=== PATIENT | male | born 2000 | race Caucasian/White ===

== ENCOUNTER 2025-06-28 13:58 | Inpatient (IN) | payer OTHER ==
[~2025-06-28] VITALS: Ht 182.9 cm; Wt 128.8 kg
[2025-06-28 16:00] VITALS: BP 142/72; PULSE 95; RESP 18; TEMP 98.2; O2SAT 96
[2025-06-28] MEDS ORDERED: POLYETHYLENE GLYCOL 3350 17 GM PACKET PO PRN (16:30)
[2025-06-28] MEDS ORDERED: ONDANSETRON 4 MG TABLET PO PRN (16:30)
[2025-06-28] MEDS ORDERED: SIMETHICONE 80 MG CHEWABLE TABLET CHEW PRN (16:30)
[2025-06-28] MEDS: ACETAMINOPHEN 325 MG TABLET PO SCH (18:27)
[2025-06-28] MEDS: IBUPROFEN 600 MG TABLET PO SCH (18:27)
[2025-06-28 20:05] VITALS: BP 123/69; PULSE 96; RESP 18; TEMP 98.9; O2SAT 96
[2025-06-28] MEDS: GABAPENTIN 300 MG CAPSULE PO SCH (21:35)
[2025-06-28] MEDS: ETHYL ALCOHOL 62% ANTISEPTIC NASAL SANITIZER 0.6 ML AMPUL NASAL SCH (21:35)
[2025-06-28] MEDS: FLUTICASONE PROPIONATE 50 MCG/SPRAY 16 GM NASAL SPRAY NASAL SCH (21:35)
[2025-06-28] MEDS: ENOXAPARIN SODIUM 40 MG/0.4 ML PF SYRINGE SQ SCH (21:36)
[2025-06-29 03:09] VITALS: BP 130/80; PULSE 91; RESP 18; O2SAT 100
[2025-06-29] MEDS: OxyCODONE HCL 10 MG IR TABLET PO PRN (03:09)
[2025-06-29 08:00] VITALS: BP 119/64; PULSE 79; RESP 18; TEMP 96.6; O2SAT 98
[2025-06-29] MEDS: MULTIVITAMINS WITH MINERALS, THERAPEUTIC TABLET PO SCH (08:18)
[2025-06-29] MEDS: SILVER SULFADIAZINE 1% 25 GM CREAM TUBE TP SCH (08:18)
[2025-06-29 08:21] LABS: PLATELET COUNT (AUTO) 410 K/uL (150-450); RED BLOOD CELL COUNT(AUTO) 3.60 MIL/uL (4.50-5.90); RED CELL DISTRIBUTION WIDTH 13.4 % (11.5-14.5); WHITE BLOOD COUNT (AUTO) 10.9 K/uL (4.5-11.0)
[2025-06-29 08:47] LABS: ASPARTATE AMINOTRANSFERASE 74 U/L (15-37); CALCIUM, TOTAL 8.6 mg/dL (8.8-10.5); CREATININE 0.83 mg/dL (0.60-1.30); GLOMERULAR FILTR. RATE CALC > 60 mL/min (>60); GLUCOSE,RANDOM 104 mg/dL (70-110); SODIUM SERUM 136 mmol/L (136-145); TOTAL PROTEIN, SERUM 6.0 g/dL (6.4-8.2); UREA NITROGEN, BLOOD 17 mg/dL (7-18)
[2025-06-29] MEDS ORDERED: SODIUM CHLORIDE 0.9% IRRIG BTL 1,000 ML IRRIG ONE (16:08)
[2025-06-29] MEDS: OxyCODONE HCL 5 MG IR TABLET PO PRN (16:12)
[2025-06-29 20:26] VITALS: BP 119/66; PULSE 88; RESP 18; TEMP 98.4; O2SAT 97
[2025-06-29 21:12] VITALS: O2SAT 97
[2025-06-30 09:00] VITALS: BP 155/68; PULSE 77; RESP 19; TEMP 97.9; O2SAT 98
[2025-06-30 20:02] VITALS: BP 135/75; PULSE 98; RESP 18; TEMP 98.4; O2SAT 99
[2025-06-30 22:42] VITALS: O2SAT 99
[2025-07-01 03:00] VITALS: BP 126/71; PULSE 88; RESP 18; TEMP 98.8; O2SAT 98
[2025-07-01 08:05] VITALS: BP 125/71; PULSE 74; RESP 20; TEMP 98.8; O2SAT 97
[2025-07-01 11:49] LABS: PLATELET COUNT (AUTO) 515 K/uL (150-450); RED BLOOD CELL COUNT(AUTO) 3.70 MIL/uL (4.50-5.90); RED CELL DISTRIBUTION WIDTH 13.8 % (11.5-14.5); WHITE BLOOD COUNT (AUTO) 13.8 K/uL (4.5-11.0)
[2025-07-01] MEDS: CEPHALEXIN MONOHYDRATE 500 MG CAPSULE PO SCH (12:37)
[2025-07-01 19:56] VITALS: BP 130/66; PULSE 82; RESP 18; TEMP 100; O2SAT 98
[2025-07-01 20:00] VITALS: O2SAT 98
[2025-07-01 21:52] VITALS: TEMP 98.6
[2025-07-02 02:10] VITALS: BP 126/74; PULSE 89; RESP 20; TEMP 98.6; O2SAT 96
[2025-07-02 06:11] LABS: PLATELET COUNT (AUTO) 496 K/uL (150-450); RED BLOOD CELL COUNT(AUTO) 3.27 MIL/uL (4.50-5.90); RED CELL DISTRIBUTION WIDTH 13.6 % (11.5-14.5); WHITE BLOOD COUNT (AUTO) 11.1 K/uL (4.5-11.0)
[2025-07-02 06:37] LABS: ASPARTATE AMINOTRANSFERASE 37 U/L (15-37); C-REACTIVE PROTEIN QUANT 7.43 mg/dL (0.00-0.30); CALCIUM, TOTAL 8.4 mg/dL (8.8-10.5); CREATININE 0.76 mg/dL (0.60-1.30); GLOMERULAR FILTR. RATE CALC > 60 mL/min (>60); GLUCOSE,RANDOM 98 mg/dL (70-110); SODIUM SERUM 140 mmol/L (136-145); TOTAL PROTEIN, SERUM 5.8 g/dL (6.4-8.2); UREA NITROGEN, BLOOD 14 mg/dL (7-18)
[2025-07-02 08:00] VITALS: BP 116/86; PULSE 65; RESP 18; TEMP 97.9; O2SAT 98
[2025-07-02] MEDS: PIPERACILLIN/TAZO 3.375 GM/D5W 50 ML IV SCH (12:00)
[2025-07-02 13:12] VITALS: BP 128/74; PULSE 82; RESP 18; TEMP 98.6; O2SAT 98
[2025-07-02 18:06] VITALS: BP 133/74; PULSE 73; RESP 18; TEMP 98; TEMP 98.2; O2SAT 98
[2025-07-02 20:19] VITALS: BP 119/61; PULSE 74; RESP 18; TEMP 98.6; O2SAT 98
[2025-07-02] MEDS: VANCOMYCIN 1GM/WATER(PEG/NADA) 200 ML IV ONE (20:22)
[2025-07-02 21:34] VITALS: O2SAT 98
[2025-07-03 07:19] LABS: PLATELET COUNT (AUTO) 528 K/uL (150-450); RED BLOOD CELL COUNT(AUTO) 3.24 MIL/uL (4.50-5.90); RED CELL DISTRIBUTION WIDTH 13.4 % (11.5-14.5); WHITE BLOOD COUNT (AUTO) 11.0 K/uL (4.5-11.0)
[2025-07-03 08:14] VITALS: BP 111/98; PULSE 70; RESP 19; TEMP 98.2; O2SAT 98
[2025-07-03] MEDS: VANCOMYCIN 1.25 GM/WATER(PEG) 250 ML IV ONE (10:21)
[2025-07-03 12:52] VITALS: BP 126/77; PULSE 94; RESP 19; TEMP 99; O2SAT 98
[2025-07-03] MEDS: VANCOMYCIN 1.25 GM/WATER(PEG) 250 ML IV SCH (16:05)
[2025-07-03 17:38] VITALS: BP 119/63; PULSE 85; RESP 18; TEMP 99; O2SAT 98
[2025-07-03 20:37] VITALS: BP 126/62; PULSE 86; RESP 18; TEMP 98.6; O2SAT 98
[2025-07-03] MEDS ORDERED: SODIUM CHLORIDE 0.9% 100 ML ONE (23:06)
[2025-07-04] VITALS (7 sets, daily range): BP systolic 122–130; BP diastolic 64–84; PULSE 72–91; RESP 18–20; TEMP 98.1–99; O2SAT 97–99
[2025-07-04 08:00] LABS: CALCIUM, TOTAL 8.6 mg/dL (8.8-10.5); CREATININE 0.87 mg/dL (0.60-1.30); GLOMERULAR FILTR. RATE CALC > 60 mL/min (>60); GLUCOSE,RANDOM 95 mg/dL (70-110); SODIUM SERUM 140 mmol/L (136-145); UREA NITROGEN, BLOOD 12 mg/dL (7-18)
[2025-07-04] MEDS: CEFPODOXIME PROXETIL 200 MG TABLET PO SCH (14:46)
[2025-07-05 01:51] VITALS: BP 124/68; PULSE 69
[2025-07-05 08:00] VITALS: BP 115/65; PULSE 75; RESP 19; TEMP 97.7; O2SAT 98
[2025-07-05 20:25] VITALS: BP 120/67; PULSE 74; RESP 18; TEMP 97.9; O2SAT 95; O2SAT 98
[2025-07-06 08:00] VITALS: BP 117/71; PULSE 65; RESP 18; TEMP 98.2; O2SAT 98
[2025-07-06 20:00] VITALS: BP 132/68; PULSE 85; RESP 18; TEMP 99; O2SAT 95
[2025-07-06 23:45] VITALS: TEMP 98.8
[2025-07-07 08:00] VITALS: BP 125/74; PULSE 80; RESP 18; TEMP 98.2; O2SAT 100
[2025-07-07 17:00] VITALS: O2SAT 100
[2025-07-07 20:35] VITALS: BP 130/74; PULSE 74; RESP 18; TEMP 98.4; O2SAT 97
[2025-07-08] VITALS (9 sets, daily range): BP systolic 127–132; BP diastolic 60–77; PULSE 80–100; RESP 18; TEMP 98.2–100.9; O2SAT 96–100
[2025-07-08 18:58] LABS: PLATELET COUNT (AUTO) 636 K/uL (150-450); RED BLOOD CELL COUNT(AUTO) 3.65 MIL/uL (4.50-5.90); RED CELL DISTRIBUTION WIDTH 14.2 % (11.5-14.5); WHITE BLOOD COUNT (AUTO) 16.5 K/uL (4.5-11.0)
[2025-07-08 19:06] LABS: CALCIUM, TOTAL 8.5 mg/dL (8.8-10.5); CREATININE 0.85 mg/dL (0.60-1.30); GLOMERULAR FILTR. RATE CALC > 60 mL/min (>60); GLUCOSE,RANDOM 90 mg/dL (70-110); SODIUM SERUM 137 mmol/L (136-145); UREA NITROGEN, BLOOD 13 mg/dL (7-18)
[2025-07-08 19:09] LABS: C-REACTIVE PROTEIN QUANT 3.08 mg/dL (0.00-0.30)
[2025-07-08 19:11] LABS: ASPARTATE AMINOTRANSFERASE 25 U/L (15-37); TOTAL PROTEIN, SERUM 6.6 g/dL (6.4-8.2)
[2025-07-08 19:14] LABS: LACTIC ACID 0.9 mmol/L (0.4-2.0)
[2025-07-08 21:31] LABS: APPEARANCE,URINE CLEAR (CLEAR); GLUCOSE, URINE (UA) NEGATIVE (NEGATIVE); LEUKOCYTE ESTERASE ,URINE TRACE (NEGATIVE); NITRATE,URINE NEGATIVE (NEGATIVE); OCCULT BLOOD,URINE NEGATIVE (NEGATIVE); SPECIFIC GRAVITIY, URINE 1.010 (1.003-1.030)
[2025-07-08 22:18] LABS: SQUAMOUS EPITHELIAL CELL,UR Few /LPF (None Seen)
[2025-07-09 00:50] VITALS: BP 130/70; PULSE 97; RESP 18; TEMP 100.6; O2SAT 96
[2025-07-09] MEDS ORDERED: FLUT16SP NASAL (03:10)
[2025-07-09] MEDS ORDERED: GABA-1181 PO (03:11)
[2025-07-09] MEDS ORDERED: IBUP-1492 PO (03:12)
[2025-07-09] MEDS ORDERED: MULT-1303 PO (03:13)
[2025-07-09] MEDS ORDERED: ACET-3385 PO (03:15)
[2025-07-09] MEDS ORDERED: OXYC5 PO (03:16)
[2025-07-09] MEDS ORDERED: OXYC10TA92 PO (03:17)
[2025-07-09 07:11] VITALS: BP 115/75; PULSE 98; RESP 18; TEMP 98.2; O2SAT 97
[2025-07-09 08:11] VITALS: BP 118/65; PULSE 85; RESP 18; TEMP 98.6; O2SAT 97
[2025-07-09 08:38] LABS: PLATELET COUNT (AUTO) 607 K/uL (150-450); RED BLOOD CELL COUNT(AUTO) 3.58 MIL/uL (4.50-5.90); RED CELL DISTRIBUTION WIDTH 14.5 % (11.5-14.5); WHITE BLOOD COUNT (AUTO) 13.2 K/uL (4.5-11.0)
[2025-07-09 10:44] VITALS: BP 124/72; PULSE 71
[2025-07-09 15:17] VITALS: BP 126/83; PULSE 81; TEMP 98.1; O2SAT 97
[2025-07-09] MEDS ORDERED: SODIUM CHLORIDE 0.9% 100 ML ONE (16:40)
[2025-07-09] MEDS ORDERED: 0.9% SODIUM CHLORIDE 10 ML SYRINGE IVP ONE (16:40)
[2025-07-09] MEDS ORDERED: IOHEXOL 350 MG/ML 100 ML VIAL ONE (16:40)
[2025-07-09 20:00] VITALS: BP 128/80; PULSE 69; RESP 18; TEMP 98.6; O2SAT 98
[2025-07-10 07:19] VITALS: BP 122/65; PULSE 79; RESP 18; TEMP 98.4; O2SAT 100
[2025-07-10 08:00] VITALS: O2SAT 100
[2025-07-10 11:35] VITALS: BP 126/85; PULSE 70; RESP 18; TEMP 97.5; O2SAT 99
[2025-07-10 20:19] VITALS: O2SAT 100
[2025-07-10 20:20] VITALS: BP 122/72; PULSE 70; RESP 20; TEMP 98.6; O2SAT 100
[2025-07-10 23:16] VITALS: BP 128/72; PULSE 79; RESP 20; O2SAT 98
[2025-07-11 06:53] LABS: PLATELET COUNT (AUTO) 536 K/uL (150-450); RED BLOOD CELL COUNT(AUTO) 3.59 MIL/uL (4.50-5.90); RED CELL DISTRIBUTION WIDTH 14.1 % (11.5-14.5); WHITE BLOOD COUNT (AUTO) 6.5 K/uL (4.5-11.0)
[2025-07-11 08:49] VITALS: BP 121/71; PULSE 64; RESP 18; TEMP 97.7; O2SAT 97
[2025-07-11 09:06] VITALS: O2SAT 97
[2025-07-11 13:12] VITALS: BP 118/70; PULSE 63; RESP 17; O2SAT 98
[2025-07-11] MEDS: DICLOFENAC SODIUM 1% 100 GM GEL [4GM] TP SCH (16:41)
[2025-07-11 18:12] VITALS: BP 125/72; PULSE 69; RESP 17; O2SAT 100
[2025-07-11 20:00] VITALS: BP 123/76; PULSE 69; RESP 18; TEMP 98.6; O2SAT 97; O2SAT 98
[2025-07-11] MEDS ORDERED: LEVO750T68 PO (20:54)
[2025-07-11] MEDS ORDERED: DICL100G60 TP (20:54)
[2025-07-11] MEDS ORDERED: SILV20CR11 TP (20:54)
[2025-07-12 08:00] VITALS: BP 112/69; PULSE 64; RESP 18; TEMP 98.2; O2SAT 98
[2025-07-12] MEDS: LIDOCAINE 5% TRANSDERMAL PATCH TD PRN (09:24)
[2025-07-12] MEDS ORDERED: ACET-3862 PO (10:41)
[2025-07-12] MEDS ORDERED: POLY17PO62 PO (10:41)
[2025-07-12] MEDS ORDERED: OXYC10TA48 PO (10:41)
[2025-07-12] MEDS ORDERED: GABA-1181 PO (10:41)
[2025-07-12] MEDS ORDERED: LEVO750T68 PO (10:41)
[2025-07-12] MEDS ORDERED: IBUP600 PO (10:41)
[2025-07-12] MEDS ORDERED: FLUT16SP NASAL (10:41)
[2025-07-12] MEDS ORDERED: MULT-1303 PO (10:41)
[2025-07-12] MEDS ORDERED: DICL100G60 TP (10:41)
[2025-07-12] MEDS ORDERED: ASPI325T87 PO (10:50)
== END 2025-07-12 14:00 | disposition home health service (06) | DRG 560 ==
LOC: 2WR 15:50
PROVIDERS: ADMIT Physical Medicine & Rehabilitation; ATTEND Physical Medicine & Rehabilitation
DX: S72.301D Unspecified fracture of shaft of right femur, subsequent encounter for closed fracture with routine healing (principal); E46 Unspecified protein-calorie malnutrition; F11.20 Opioid dependence, uncomplicated; D64.9 Anemia, unspecified; E66.812 Obesity, class 2; E88.09 Other disorders of plasma-protein metabolism, not elsewhere classified; S89.81XD Other specified injuries of right lower leg, subsequent encounter; S81.812D Laceration without foreign body, left lower leg, subsequent encounter; S81.811D Laceration without foreign body, right lower leg, subsequent encounter; S81.012D Laceration without foreign body, left knee, subsequent encounter; S93.492D Sprain of other ligament of left ankle, subsequent encounter; S93.05XD Dislocation of left ankle joint, subsequent encounter; V29.99XD Rider (driver) (passenger) of other motorcycle injured in unspecified traffic accident, subsequent encounter; D72.829 Elevated white blood cell count, unspecified; Z68.38 Body mass index [BMI] 38.0-38.9, adult; F17.210 Nicotine dependence, cigarettes, uncomplicated; R74.01 Elevation of levels of liver transaminase levels; Z74.09 Other reduced mobility; M25.561 Pain in right knee; I95.9 Hypotension, unspecified; R74.8 Abnormal levels of other serum enzymes; Z79.899 Other long term (current) drug therapy
CPT/HCPCS: 71045; 74177; 80048; 80053; 80202; 81001; 83605; 84145; 85025; 85651; 86140; 87040; 87070; 87081; 87186; 87205; 92523; 93970; 97110; 97112; 97116; 97140; 97150; 97163; 97166; 97167; 97530; 97535; 99366; J1650; J2543; J7050; 36415-L1; 36415-TC